=== PATIENT | female | born 1980 | race Caucasian/White ===

== ENCOUNTER 2020-06-15 08:37 | Outpatient (RCR) | payer BC, SELFPAY ==
[2020-06-13] MEDS: RHO(D) IMMUNE GLOBULIN 300 MCG SYRINGE IM (17:27)
== END 2020-09-11 23:59 | disposition home or self-care (01) ==
LOC: ANHLAB 08:37
PROVIDERS: Visit Provider Obstetrics & Gynecology
DX: Z29.13 Encounter for prophylactic Rho(D) immune globulin (principal); O36.0130 Maternal care for anti-D [Rh] antibodies, third trimester, not applicable or unspecified; O20.0 Threatened abortion; Z3A.00 Weeks of gestation of pregnancy not specified
CPT/HCPCS: 36415; 84702; 85461; 90384; 96372; J2790

== ENCOUNTER 2020-11-27 10:50 | Outpatient (RCR) | payer BC, SELFPAY ==
[2020-11-27 12:05] LABS: Hematocrit 32.9 % (37.0-47.0); Hemoglobin 11.5 g/dL (12.0-15.0)
[2020-11-27 12:37] LABS: Glucose 1 Hour PP 50gm Dose 104 mg/dL
[2020-11-27 13:19] LABS: HIV 1/2 Ab P24 Ag Result Negative (Negative)
[2020-11-28] MEDS: RHO(D) IMMUNE GLOBULIN 300 MCG SYRINGE IM (09:25)
[2020-11-28 13:09] LABS: Rapid Plasma Reagin Non-Reactive (NonReactive)
== END 2021-02-25 23:59 | disposition home or self-care (01) ==
LOC: ANHLAB 10:50
PROVIDERS: Visit Provider Obstetrics & Gynecology
DX: Z29.13 Encounter for prophylactic Rho(D) immune globulin (principal); Z11.4 Encounter for screening for human immunodeficiency virus [HIV]; O36.0130 Maternal care for anti-D [Rh] antibodies, third trimester, not applicable or unspecified; Z3A.00 Weeks of gestation of pregnancy not specified
CPT/HCPCS: 36415; 82947; 85014; 85018; 85461; 86592; 86703; 90384; 96372; G0432; J2790

== ENCOUNTER 2021-01-14 12:55 | Observation (INO) | payer BC, SELFPAY ==
[2021-01-14 13:00] VITALS: BMI 27.4
[2021-01-14 13:30] VITALS: BP 107/59; PULSE 76
[2021-01-14 13:45] VITALS: BP 104/63; PULSE 88
[2021-01-14 14:00] VITALS: BP 110/63; PULSE 80
[2021-01-14 14:15] VITALS: BP 106/65; PULSE 86
--- NOTE | 2021-01-14 14:54 | OBADM ---
This patient, Rosmery Meade, admitted to the OB room OB Post 116 for observation. Patient/family oriented to hospital policies and general routines including ID bracelet, bed and alarms, visiting hours, pain management, procedures, bathroom and other care routines, personal items, smoking policy, room service/diet, and visiting hours. Patient/Family are encouraged to report perceived risks to care and to ask questions if they do not understand what they are told or what they should do.
--- NOTE | 2021-02-10 19:46 | PM.OBTRLD ---
OB - Triage/Final Diagnosis Visit Information Comments/Additional reasons for admission: I have assessed the risk for this patient, Rosmery Meade, and determined that she would benefit from observation care. Final Diagnosis (1) False labor: Code(s): O47.9 - False labor, unspecified Status: Acute
== END 2021-01-14 14:35 | disposition home or self-care (01) ==
PROVIDERS: Admitting Provider Obstetrics & Gynecology; Visit Provider Obstetrics & Gynecology
DX: O47.03 False labor before 37 completed weeks of gestation, third trimester (principal); Z3A.35 35 weeks gestation of pregnancy
CPT/HCPCS: G0378; G0379

== ENCOUNTER 2021-01-23 16:32 | Inpatient (IN) | payer BC, SELFPAY ==
[2021-01-23] VITALS (70 sets, daily range): BP systolic 87–136; BP diastolic 49–88; PULSE 67–229; TEMP 36.6–37.5; O2SAT 94–100; BMI 27.7
--- NOTE | 2021-01-23 17:29 | WPDANESEPP ---
Anes - Eval Pre Procedure Procedure: labor epidural Date/Time: 01/23/21 17:29 Surgeon: yaz Pre Op Diagnosis: leaking Patient Data Age: 40 Gender: F Height: Weight: Allergies Allergy/AdvReac Type Severity Reaction Status Date / Time No Known Allergies Allergy Verified 11/28/20 09:22 Home Medications Medication Instructions Recorded Confirmed Type prenat.vits,gabriel,hxz-wdyn-kykgs 1 tablet PO DAILY 01/14/21 01/14/21 History Patient hx anesthesia problems: none Family hx anesthesia problems: none PMFSH Past Medical History Medical History Migraines Surgical History Surgical History (Updated 01/23/21 @ 17:30 by Chrissie Angel CRNA) S/P abdominoplasty Family History Family History Grandparent Family history of malignant neoplasm of breast Social History Social History Smoking status: Never smoker Alcohol intake: never Substance use: never Spiritual care concerns: No Exam Day of Procedure 01/23/21 17:29
[2021-01-23] MEDS: LACTATED RINGERS 1,000 ML 125 ML IV CONT ×2 (17:38→18:19)
[2021-01-23 17:41] LABS: Hematocrit 36.2 % (37.0-47.0); Hemoglobin 12.7 g/dL (12.0-15.0); Mean Corpuscular HGB Conc 35.1 g/dl (32-36); Mean Corpuscular Hemoglobin 32.5 pg (26-34); Mean Corpuscular Volume 92.6 fl (80-100); Mean Platelet Volume 9.9 fl (7.4-10.4); Platelet Count Result 316 k/mm3 (150-375); Red Blood Count 3.91 M/mm3 (4.2-5.4); Red Cell Distribution Width 13.1 % (11.5-14.5); White Blood Count 20.8 K/mm3 (4.5-10.0)
[2021-01-23 18:06] LABS: Lymphocytes Absolute Manual 3.12 K/mm3 (1.1-4.5); Monocytes Absolute Manual 1.04 K/mm3 (0.1-0.90); Monocytes Percent Manual 5 % (3-9); Neutrophils Percent Manual 80 % (46-73); Platelet Estimate Adequate (Adequate); Total Cells Counted 100
--- NOTE | 2021-01-23 18:19 | WPDOBADMIT ---
Obstetrics - Admit Note Admission Note: record reviewed. No pertinent additions to the history and/or any subsequent changes in the physical findings that are not consistent with the expected course of the were found. Pt arrived after SROM at home, clear fluid, forebag SVE /-2, AROM moderate amount of clear odorless fluid Additions to the history and/or subsequent changes in the physical findings follow. None.
--- NOTE | 2021-01-23 18:42 | LDADM ---
This patient, Rosmery Meade, was admitted to Labor/Delivery/Recovery 107 on 01/23/21 at 16:32. Plans for labor, pain management and were discussed with patient. Patient/family oriented to hospital policies and general routines including ID bracelet, bed and alarms, visiting hours, pain management, procedures, bathroom and other care routines, personal items, smoking policy, room service/diet and guest tray routines, infant security routines, and visiting hours. Patient/Family are encouraged to report perceived risks to care and to ask questions if they do not understand what they are told or what they should do. See OBIX for further documentation.
[2021-01-23] MEDS: OXYTOCIN 30 UNITS/NS 500 ML 30 UNITS/500 ML BAG 999 UNITS IV CONT (21:46)
--- NOTE | 2021-01-23 21:59 | P.PCNOB_ITS ---
OB - Delivery Note Procedure Delivery date: 01/23/21 Procedure: vaginal delivery Intrapartal events: None Delivery augmentation: rupture of membranes Delivery monitor: external FHT and external uterine Route of delivery: Laceration Description: Perineal - 1st Degree Delivery repair: vicryl Specimen: No Quantitative Blood Loss (ml): 217 Anesthesia type: Epidural Disposition: other () [place] Baby Date of : 01/23/21 Time of : 21:44 Weeks of gestation at delivery: 37 gender: Female Weight (pounds): 6 Weight (ounces): 5 presentation: vertex position: Left Occiput Anterior Placenta delivery description: Spontaneous cord vessel description: 3 Vessels, Clamped/Cut and Delayed Cord Clamping score one minute: 8 score five minutes: 9 Narrative: mother and baby skin to skin in stable condition
[2021-01-23] MEDS: OXYTOCIN 30 UNITS/NS 500 ML 30 UNITS/500 ML BAG 125 UNITS IV CONT (22:26)
[2021-01-23] MEDS: IBUPROFEN 600 MG TABLET PO (22:27)
[2021-01-24] VITALS (7 sets, daily range): BP systolic 90–106; BP diastolic 54–62; PULSE 66–75; RESP 14–17; TEMP 36.1–37.2; O2SAT 95–98
[2021-01-24] MEDS: ACETAMINOPHEN 325 MG TABLET 650 MG PO ×3 (01:20→15:43)
[2021-01-24] MEDS: IBUPROFEN 600 MG TABLET PO ×4 (03:42→23:53)
[2021-01-24 05:41] LABS: Hematocrit 33.4 % (37.0-47.0); Hemoglobin 11.3 g/dL (12.0-15.0)
--- NOTE | 2021-01-24 07:30 | PC.NURSE ---
Consult with pt., mother report infant is latching, sleepy and on and off during feeding. Mother reports last child to breastfeed is 16 years old. Discussed and the 37 week , establishing may have its own unique set of circumstances due to their immaturity. infants may be less alert, have less stamina and may have issues with latch, suck and swallow. With the possible inability to have a vigorous suck swallow, infants may not be adequately stimulating mother and/or able to have adequate milk transfer. Pumping should be considered for additional stimulation and to offer EBM as part of supplement as needed if infant is not effectively feeding. Reviewed infant feeding cues, frequencies, duration of feedings, feeding elimination flow sheet, and signs of adequate intake. Demonstrated stimulation techniques to wake infant for feeding. Assisted with infant to breast. Reviewed positioning/alignment in cross cradle, holding breast in U hold and guided asymmetrical latch on. Infant was able to latch correctly within a few attempts. nursed eagerly, with steady draws and occasional swallowing noted. Reviewed signs of a correct latch, effective nursing and suck swallow ratio. Mother reported tenderness at times, had slipped to shallow latch. Demonstrated how to adjust latch more deeply while feeding. Mother quickly reports she can feel is latched more deeply and has minimal tenderness. Suggested to stimulate infant while feeding to keep infant awake and nursing effectively for increased stimulation. increased intake and to assist with maintaining deep latch. Instructed mother to call out for RN assistance if she is unable to latch for feeding or she has discomfort with nursing Nipple care reviewed.
--- NOTE | 2021-01-24 07:49 | PM.OBPNVD ---
OB - PN: Subj Subjective Date/time seen: 01/24/21 07:49 Patient comments: no complaints baby status: doing well OB - PN: Obj Data Labs CBC & Chem 7: 01/24/21 03:45 Labs: Laboratory Results - last 24 hr 01/23/21 01/23/21 01/24/21 17:32 17:32 03:45 WBC 20.8 H RBC 3.91 L Hgb 12.7 11.3 L Hct 36.2 L 33.4 L MCV 92.6 MCH 32.5 MCHC 35.1 RDW 13.1 Plt Count 316 MPV 9.9 Immature Gran % (Auto) Not Reportable Neut % (Auto) Not Reportable Lymph % (Auto) Not Reportable Baca % (Auto) Not Reportable Eos % (Auto) Not Reportable Baso % (Auto) Not Reportable Lymph # (Auto) Not Reportable [place]aca # (Auto) Not Reportable Eos # (Auto) Not Reportable Baso # (Auto) Not Reportable Abs Immat Gran (auto) Not Reportable Absolute Neuts (auto) Not Reportable Absolute Nucleated RBC Not Reportable Total Counted 100 Neutrophils % (Manual) 80 H Lymphocytes % (Manual) 15.0 L Monocytes % (Manual) 5 Nucleated RBC % Not Reportable Abs Lymphs (Manual) 3.12 Abs Monocytes (Manual) 1.04 H Platelet Estimate Adequate Blood Type B Negative Antibody Screen Positive Antibody Identification Passive Due to RH Imm Glob Antigen Identification Cancelled KURT, IgG Interpret Not Performed KURT, Poly Interpret Negative KURT, Complement Interp Not Performed Screen Baby's Blood Type Baby's KURT Doses of RhIg Required 01/24/21 03:45 WBC RBC Hgb Hct MCV MCH MCHC RDW Plt Count MPV Immature Gran % (Auto) Neut % (Auto) Lymph % (Auto) Baca % (Auto) Eos % (Auto) Baso % (Auto) Lymph # (Auto) Baca # (Auto) Eos # (Auto) Baso # (Auto) Abs Immat Gran (auto) Absolute Neuts (auto) Absolute Nucleated RBC Total Counted Neutrophils % (Manual) Lymphocytes % (Manual) Monocytes % (Manual) Nucleated RBC % Abs Lymphs (Manual) Abs Monocytes (Manual) Platelet Estimate Blood Type B Negative Antibody Screen TNP Antibody Identification Antigen Identification KURT, IgG Interpret KURT, Poly Interpret KURT, Complement Interp Screen Negative Baby's Blood Type O pos Baby's KURT Positive Doses of RhIg Required 1 OB - PN A/P Plan day: 1 Plan: routine care Time Spent With Patient Time: Total time spent is greater than 50% in coordination of care (as documented) at patient's floor/unit and/or counseling patient: Time with patient: less than 15 minutes Review of Systems Review of Systems: All systems reviewed & are unremarkable except as noted in HPI and below Exam Narrative: Exam Narrative: Fundus firm and vaginal flow controlled. No lower ext redness, warmth, or edema. Negative homans. Const: General: comfortable Chest: Breast/axilla inspection: normal inspection of the breasts Resp: Effort & Inspection: normal respiratory effort Cardio: Rate: regular rate GI: GI Palp: Yes Soft to palpation Psych: Appearance: grossly normal Affect: normal affect Attitude: cooperative Thought content: Yes Normal thought content present Judgement: Good judgement present (Psych)
[2021-01-24] MEDS: DOCUSATE SODIUM 100 MG CAPSULE PO ×2 (07:51→17:35)
[2021-01-24] MEDS: MULTIVIT/MIN/PREN/FOL AC/IRON TABLET 1 TAB PO (07:52)
--- NOTE | 2021-01-24 10:37 | WPDANLDPN2 ---
Anes-Prog Note L&D Date/Time: 01/24/21 10:37 Comfortable throughout: labor and delivery Neuraxial method: epidural Epidural/Spinal procedure site: clean & non-tender Neuro status: Neuro function grossly intact. Cardiovascular status: normal Respiratory status: normal Airway patency: baseline Mental status: baseline Post-Op hydration status: normal Vital Signs: Last Vital Signs Temp 37.2 C 01/24/21 07:20 Pulse 66 01/24/21 07:20 Resp 16 01/24/21 07:20 BP 98/54 L 01/24/21 07:20 Pulse Ox 95 01/24/21 07:20 Pain score (VAS): 0/10 I/O: Intake & Output 01/23/21 01/24/21 01/24/21 23:59 07:59 15:59 Intake Total 1500 Output Total 50 Balance 1500 -50 Post-procedural complaints: none Patient feedback: Patient satisfied with anesthetic care.
[2021-01-24] MEDS: TETANUS,DIPHTHERIA,AC PERTUSSIS ADULT (0.5 ML) BOOSTRIX IM (12:19)
[2021-01-24] MEDS: RHO(D) IMMUNE GLOBULIN 300 MCG/2 ML SYRINGE IM (12:22)
[2021-01-24 13:04] LABS: Rapid Plasma Reagin Non-Reactive (NonReactive)
--- NOTE | 2021-01-24 14:10 | PC.NURSE ---
Consult with pt., she was able to independently latch latch for two feedings. Mother states she does not feel infant was latched as deeply and was on and off during feedings. Assisted with infant to breast. Reviewed positioning/alignment in cross cradle, holding breast in U hold and guided asymmetrical latch on. Infant was able to latch correctly within a few attempts. nursed eagerly, with steady draws and occasional swallowing noted. Reviewed signs of a correct latch, effective nursing and suck swallow ratio. Mother reported tenderness at times, had slipped to shallow latch., mother independently worked to adjust latch. Mother reports she can feel infant is latched more deeply and has minimal tenderness. Suggested to stimulate infant while feeding to keep infant awake and nursing effectively for increased stimulation. increased intake and to assist with maintaining deep latch. Instructed mother to call out for RN assistance if she is unable to latch infant for feeding or she has discomfort with nursing Nipple care reviewed.
--- NOTE | 2021-01-25 05:49 | P.PNOB_ITS ---
OB - PN: Subj Subjective Date/time seen: 01/25/21 05:49 Patient comments: no complaints baby status: doing well OB - PN: Obj Data Labs CBC & Chem 7: 01/24/21 03:45 Labs: Laboratory Results - last 24 hr 01/23/21 01/24/21 17:32 03:45 RPR Non-reactive Blood Type B Negative Antibody Screen TNP Screen Negative Baby's Blood Type O pos Baby's KURT Positive Doses of RhIg Required 1 OB - PN A/P Plan day: 2 Plan: routine care and discharge home Time Spent With Patient Time: Total time spent is greater than 50% in coordination of care (as documented) at patient's floor/unit and/or counseling patient: Review of Systems Review of Systems: All systems reviewed & are unremarkable except as noted in HPI and below Exam Const: General: cooperative Orientation/consciousness: patient oriented x3 Psych: Attitude: cooperative Thought process: Normal thought process prese nt Thought content: Yes Normal thought content present Insight: Good insight present (Psych) Judgement: Good judgement present (Psych)
--- NOTE | 2021-01-25 05:51 | PM.OBDSVD ---
DS: Admitting Diagnosis Admitting Diagnosis Admitting Diagnosis: SROM OB - DS: Summary OB Procedures : None OB Procedures Intrapartum: Spontaneous Vag Delivery OB Procedures: : None Time Spent with Patient Time attestation: Total time spent providing and/or coordinating discharge services: DS: Data Data Completed and Pending Labs on day of discharge: Labs from last 24 hours 01/24/21 01/23/21 03:45 17:32 RPR Non-reactive Blood Type B Negative Antibody Screen TNP Screen Negative Baby's Blood Type O pos Baby's KURT Positive Doses of RhIg Required 1 Discharge Plan Discharge Attending physician on discharge: Helen Jackman Discharging Clinician: Balbina Prado Patient Disposition: Home, Self-Care Activity: pelvic rest Diet: regular Patient Instructions: Antibiotic Form, How to Stop Smoking (GEN), Cigarette Smoking and Your Health (GEN) Stand Alone Forms: General Discharge Information Follow-up/Referrals: Balbina Prado, CNM [Certified Nurse Perioperative Nurse] - 4 Weeks Discharge Medications: Continued prenat.vits,gabriel,zns-cxfl-tctcz Tablet 1 tablet PO DAILY RF: 0 Discontinued zolpidem [Ambien] 5 mg Tablet 5 mg PO HS PRN (Reason: Sleep) RF: 0 Date of admission: 01/23/21 16:32 Primary Care Provider: PHYSICIAN,PACKING AND FINAL ASSEMBLY SUPERVISOR Admitting Provider: Helen Jackman Attending physician on admission: Helen Jackman Condition: Stable
[2021-01-25 08:00] VITALS: PULSE 80; RESP 16; O2SAT 99
[2021-01-25 09:00] VITALS: BP 112/67; PULSE 80; RESP 16; TEMP 37.1; O2SAT 99
[2021-01-25] MEDS: DOCUSATE SODIUM 100 MG CAPSULE PO (09:36)
[2021-01-25] MEDS: IBUPROFEN 600 MG TABLET PO (09:36)
[2021-01-25] MEDS: MULTIVIT/MIN/PREN/FOL AC/IRON TABLET 1 TAB PO (09:36)
--- NOTE | 2021-01-25 12:17 | PC.NURSE ---
1030-Patient viewed the discharge video Mother & Baby Care, The First Two Weeks . Patient was given the opportunity and encouraged to ask questions. Patient verbalized understanding of information shared and has been given the mother/baby guide for home reference.
--- NOTE | 2021-01-25 14:35 | PC.NURSE ---
0930 Consult with pt., mother reports was sleepy during the night and was on and off several times during feedings. Mother states ICP has suggested receive 10-15mls supplement after each feeding. Mother feels when she has assist with latching infant latches with a deep latch and is able to maintain latch. Discussed assisting infant with latch in cross cradle and holding breast during entire feeding to assist infant with deep latch and maintaining latch, helping with increased stimulation and increased intake for . Suggested mother initiate pumping to assist with stimulation of milk supply and may offer EBM as part of supplement. Assisted with to breast. Reviewed positioning/alignment in cross cradle, holding breast in U hold and guided asymmetrical latch on. was able to latch correctly. Infant nursed eagerly, with steady draws and occasional swallowing noted. Reviewed signs of a correct latch, effective nursing and suck swallow ratio. Mother switched to cradle, slipped to shallow latch and was on and off during feeding. Advised is eagerly and needs the assistance of mother holding breast and keeping her aligned correctly for feeding. Once mother returns to U hold infant was able to suckle more consistently, needing long pausing. Suggested mother stimulate while feeding to keep awake and nursing effectively. Infant responded with increased nursing with mother's stimulation. Infant was able to maintain latch without discomfort to mother. Nipple care reviewed. Assisted parents with paced feeding after , infant is slow to nipple 10mls with formula running from her mouth. Reviewed to hold upright and chin support. Discussed signs may need to increase supplementation and signs when infant may be ready to decreased/discontinue supplementation. Advised not to discontinue supplement until feeding is observed by follow up RN, or BRIAN. Advised to discuss feeding plan with ICP at first appointment. Observed mother is able to independently latch with appropriate positioning/alignment. She denies any nipple discomfort, is feeding as required and waking infant to feed if needed. has had at least 8 feedings in the past 24 hours, and is currently meeting outcomes for weight, output, jaundice and feeding frequencies. Mother states she feels confident to continue feeding plan of putting to breast, supplementation and pumping at home. Reviewed transition to breast milk, signs of adequate intake, and engorgement/relief. Instructed to call ICP if intake/output less than required. Reviewed regular medications mother is taking. Information provided per Estrellita. Reviewed community resources on the [facility] website and in the Mom/Baby guide. Information on outpatient services provided. Mother has no further questions at this time.
[2021-01-26 08:52] VITALS: BP 113/64; PULSE 68; RESP 16; TEMP 36.8; O2SAT 100
== END 2021-01-25 11:40 | disposition home or self-care (01) | DRG 807 ==
LOC: ANHLDR 16:59 → ANHOB2 01-24 00:41
PROVIDERS: Advanced Practice Midwife; Admitting Provider Obstetrics & Gynecology; Visit Provider Obstetrics & Gynecology
DX: O42.92 Full-term premature rupture of membranes, unspecified as to length of time between rupture and onset of labor (principal); Z37.0 Single live birth; Z3A.37 37 weeks gestation of pregnancy; O70.0 First degree perineal laceration during delivery
CPT/HCPCS: 36415; 85014; 85018; 85025; 85461; 86592; 86850; 86880; 86900; 86901; 90384; 90715; A9270; J2590; J2790; J2795; J7120

== ENCOUNTER 2022-02-17 16:57 | Outpatient (RCR) | payer BC, SELFPAY ==
[2022-02-18] MEDS: RHO(D) IMMUNE GLOBULIN 300 MCG/2 ML SYRINGE IM (17:33)
== END 2022-05-14 23:59 | disposition home or self-care (01) ==
LOC: ANHLAB 16:57
PROVIDERS: Visit Provider Obstetrics & Gynecology
DX: O26.859 Spotting complicating pregnancy, unspecified trimester (principal); Z3A.00 Weeks of gestation of pregnancy not specified
CPT/HCPCS: 36415; 85461; 86850; 86900; 86901; 90384; 96372; J2790

== ENCOUNTER 2022-05-23 09:08 | Outpatient (RCR) | payer BC, SELFPAY ==
[2022-05-22 17:47] LABS: Hematocrit 33.9 % (37.0-47.0); Hemoglobin 11.5 g/dL (12.0-15.0)
[2022-05-22 18:36] LABS: HIV 1/2 Ab P24 Ag Result Negative (Negative)
== END 2022-05-23 10:00 | disposition home or self-care (01) ==
LOC: ANHLAB 09:08
PROVIDERS: Visit Provider Advanced Practice Midwife
DX: O36.0130 Maternal care for anti-D [Rh] antibodies, third trimester, not applicable or unspecified (principal); Z36.89 Encounter for other specified antenatal screening; Z3A.00 Weeks of gestation of pregnancy not specified
CPT/HCPCS: 36415; 85014; 85018; 85461; 86703; 86880; 86902; 90384; G0432; J2790

== ENCOUNTER 2022-05-23 16:31 | Outpatient (CLI) | payer BC, SELFPAY ==
[2022-05-23] MEDS: RHO(D) IMMUNE GLOBULIN 300 MCG/2 ML SYRINGE IM (17:09)
[2022-05-23 18:01] LABS: Glucose 1 Hour PP 50gm Dose 136 mg/dL
== END 2022-05-23 16:32 | disposition home or self-care (01) ==
LOC: ANHLAB 16:34
PROVIDERS: Visit Provider Advanced Practice Midwife
DX: Z36.89 Encounter for other specified antenatal screening (principal)
CPT/HCPCS: 36415; 82947; 96372

== ENCOUNTER 2022-07-09 14:06 | Outpatient (RCR) | payer BC, SELFPAY ==
[2022-07-09] MEDS: BETAMETHASONE SOD PHOS/ACETATE 30 MG/5 ML VIAL 12 MG IM (14:26)
== END 2022-07-10 14:41 | disposition home or self-care (01) ==
LOC: ANHOBOP 14:06
PROVIDERS: Visit Provider Obstetrics & Gynecology
DX: O36.8990 Maternal care for other specified fetal problems, unspecified trimester, not applicable or unspecified (principal); Z3A.00 Weeks of gestation of pregnancy not specified
CPT/HCPCS: 96372; J0702

== ENCOUNTER 2022-07-10 13:49 | Outpatient (CLI) | payer BC, SELFPAY ==
[2022-07-10] MEDS: BETAMETHASONE SOD PHOS/ACETATE 30 MG/5 ML VIAL 12 MG IM (14:06)
[2022-07-10 14:35] VITALS: BP 99/55; PULSE 87
--- NOTE | 2022-07-10 15:11 | PC.NURSE ---
Dr. Jackman notified of patient's NST, ROM plus is negative, and celestone injection given.
== END 2022-07-10 13:50 | disposition home or self-care (01) ==
LOC: ANHOBOP 13:54
PROVIDERS: Visit Provider Obstetrics & Gynecology
DX: O26.859 Spotting complicating pregnancy, unspecified trimester (principal); Z3A.00 Weeks of gestation of pregnancy not specified
CPT/HCPCS: 59025; 84112; 96372; J0702

== ENCOUNTER 2022-07-11 08:54 | Observation (INO) | payer BC, SELFPAY ==
[2022-07-11] VITALS (39 sets, daily range): BP systolic 89–102; BP diastolic 53–63; PULSE 63–92; RESP 16; TEMP 37.4–37.7; O2SAT 95–100; BMI 25.2
--- NOTE | 2022-07-11 10:02 | OBADM ---
This patient, Rosmery Meade, admitted to the OB room Labor/Delivery/Recovery 118 for decreased movement and changed to observation due to contractions. Patient/family oriented to hospital policies and general routines including ID bracelet, bed and alarms, visiting hours, pain management, procedures, bathroom and other care routines, personal items, smoking policy, room service/diet, and visiting hours. Patient/Family are encouraged to report perceived risks to care and to ask questions if they do not understand what they are told or what they should do.
[2022-07-11] MEDS: NIFEdipine 30 MG TAB.ER.24 PO (10:03)
[2022-07-11 11:30] LABS: Appearance Urine Slightly Cloudy (Clear); Bilirubin Urine Negative (Negative); Blood Urine Negative (Negative); Color Urine Light Yellow (Yellow); Glucose Urine UA Negative (Negative); Ketones Urine 1+ mg/dL (Negative); Leukocyte Esterase Ur Negative LEU/UL (Negative); Nitrate Urine Negative (Negative); Protein Urine Negative (Negative); Specific Grav Ur 1.015 (1.001-1.035); Urobilinogen Urine 0.2 mg/dL (<2.0)
[2022-07-11 11:37] LABS: Add Urine Microscopic? YES; Amorphous Sediment Urine Few; Squamous Epithelial Cell Urine Rare /hpf (Few)
--- NOTE | 2022-07-15 19:48 | P.PNOB_ITS ---
OB - Triage/Final Diagnosis Visit Information Date of evaluation: 07/11/22 Reason for evaluation: threatened labor Comments/Additional reasons for admission: I have assessed the risk for this patient, Rosmery Meade, and determined that she would benefit from observation care. Evaluation Laboratory results: Laboratory Tests 07/11/22 11:14 Urine Color Light yellow Urine Appearance Slightly cloudy Urine pH 7.0 Ur Specific Richardson 1.015 Urine Protein Negative Urine Glucose (UA) Negative Urine Ketones 1+ H Ur Blood (Man) Negative Urine Nitrate Negative Urine Bilirubin Negative Urine Urobilinogen 0.2 Leukocyte Esterase Rfl Negative Ur Squamous Epith Cells Rare Amorphous Sediment Few H
== END 2022-07-11 13:05 | disposition home or self-care (01) ==
PROVIDERS: Advanced Practice Midwife; Admitting Provider Obstetrics & Gynecology; Visit Provider Obstetrics & Gynecology
DX: O47.03 False labor before 37 completed weeks of gestation, third trimester (principal); Z3A.34 34 weeks gestation of pregnancy
CPT/HCPCS: 81001; A9270; G0378; G0379

== ENCOUNTER 2022-07-23 12:00 | Observation (INO) | payer BC, SELFPAY ==
[2022-07-23 12:19] VITALS: BP 113/64; PULSE 73
[2022-07-23 13:00] VITALS: BP 109/71; PULSE 88
--- NOTE | 2022-07-25 07:37 | PM.OBTRLD ---
OB - Triage/Final Diagnosis Visit Information Date of evaluation: 07/23/22 Reason for evaluation: threatened labor Comments/Additional reasons for admission: I have assessed the risk for this patient, Rosmery Meade, and determined that she would benefit from observation care.
== END 2022-07-23 13:55 | disposition home or self-care (01) ==
PROVIDERS: Admitting Provider Obstetrics & Gynecology; Visit Provider Obstetrics & Gynecology
DX: O47.03 False labor before 37 completed weeks of gestation, third trimester (principal); Z3A.36 36 weeks gestation of pregnancy
CPT/HCPCS: 84112; G0378; G0379

== ENCOUNTER 2022-07-25 18:17 | Observation (INO) | payer BC, SELFPAY ==
[2022-07-25 20:30] VITALS: BMI 25.4
[2022-07-26 04:22] VITALS: BP 104/42; PULSE 83
--- NOTE | 2022-07-26 06:04 | OBADM ---
This patient, Rosmery Meade, admitted to the OB room Labor/Delivery/Recovery 105 for observation. Patient/family oriented to hospital policies and general routines including ID bracelet, bed and alarms, visiting hours, pain management, procedures, bathroom and other care routines, personal items, smoking policy, room service/diet, and visiting hours. Patient/Family are encouraged to report perceived risks to care and to ask questions if they do not understand what they are told or what they should do.
== END 2022-07-26 07:28 | disposition home or self-care (01) ==
PROVIDERS: Admitting Provider Obstetrics & Gynecology; Visit Provider Obstetrics & Gynecology
DX: O47.03 False labor before 37 completed weeks of gestation, third trimester (principal); Z3A.36 36 weeks gestation of pregnancy
CPT/HCPCS: G0378; G0379

== ENCOUNTER 2022-07-30 11:35 | Inpatient (IN) | payer BC, SELFPAY ==
[2022-07-30] VITALS (92 sets, daily range): BP systolic 65–129; BP diastolic 39–93; PULSE 64–110; RESP 18; TEMP 36.4–37.1; O2SAT 92–100; BMI 25.4
--- OUTSIDE RECORDS SUMMARY | 2022-07-30 13:07 | XMS_ITS ---
:1980 Author Care Team Providers Name Role Phone Balbina Prado [place] Primary Care Provider Unavailable Allergies Code Code System Name Reaction Severity Status Onset NKDA ? Medications Name Status Start Date Stop Date ? ? zndbpmnkry-zirqkiglzoedv-ypqcvrvz 50 mg-300 mg-40 mg capsule Com pleted ? 02/27/2021 TAKE 1 CAPSULE BY MOUTH EVERY 4 TO 6 HO URS NEEDED FOR HEADACHE. NOT TO EXCEED 6 CAPSULES IN 24 HOURS. Chantix Starting Month Box 0.5 mg (11)-1 mg (42) tablets Complet ed ? 07/04/2020 in dose pack cyclobenzaprine 10 mg tablet Completed ? TAKE 1 TABLET BY MOUTH AT BEDTIME NEEDED FOR TENSION HEADACH E disulfiram 250 mg tablet Completed ? 020 Fish Oil Completed ? 02/27/2021 magnesium Completed ? 11/29/2020 metoclopramide 10 mg tablet Completed ? 01/03 TAKE 1 TABLET BY MOUTH THREE TIMES DAILY metronidazole 500 mg tablet Completed ? 10/2021 TAKE 1 TABLET BY MOUTH TWICE DAILY FOR 7 DAYS nifedipine ER 30 mg tablet,extended release 24 hr Active ? Not available nitrofurantoin monohydrate/macrocrystals 100 mg capsule Complete d ? 01/15/2022 TAKE 1 CAPSULE BY MOUTH EVERY 12 HOURS FOR 7 DAYS ondansetron 4 mg disintegrating tablet Completed ? 05/25/2020 Active ? Not available Super Thin Lancets 28 gauge Active ? Not available TEST FOUR TIMES DAILY True Metrix Glucose Meter Active ? Not av ailable USE DIRECTED True Metrix Glucose Test Strip Active ? N ot available zolpidem 5 mg tablet Completed ? 02/27/2021 TAKE 1 TABLET BY MOUTH AT BEDTIME FOR INSOMNIA
--- OUTSIDE RECORDS SUMMARY | 2022-07-30 13:08 | XMS_ITS | Encounter Summary ---
:1980 Author Reason for Visit OB visit OB [id number] EDC 08/17/2022 LMP 10/13/2021 Assessment and Plan Assessment Note Patient is _28__weeks . Discuss ed plan. 1. Routine care Discussion Note: None recorded.Patient educational handouts: No information available. Plan of Care Reminders Provider Appointments Nst 08/06/2022 10:30AM Nst, , EQUI P ? U/S OB BPP 08/06/2022 11:00AM Ultrasound, TECH ? Ob Routine 08/06/2022 11:30AM Balbina gray CNM ? Nst 08/13/2022 10:30AM Nst, , EQUI P ? Ob Routine 08/13/2022 11:30AM Nehal Friend MD ? U/S OB BPP 08/13/2022 11:00AM Ultrasound Two, TECH Lab None recorded. ? ? Referral None recorded. ? ? Procedures None recorded. ? ? Surgeries None recorded. ? ? Imaging None recorded. ? ? Medications Name Start Date ? ? nifedipine ER 30 mg tablet,extended release 24 hr ? TAKE 1 TABLET BY MOUTH EVERY DAY ? Super Thin Lancets 28 gauge ? TEST FOUR TIMES DAILY True Metrix Glucose Meter ? USE DIRECTED True Metrix Glucose Test Strip ? Medications Administered None recorded. Vitals Height Weight BMI Blood Pressure 5 ft 127 lbs 24.8 kg/m2 98/65 mm[Hg] Results Lab Results None recorded. Allergies Code Code System Name Reaction Severity Onset NKDA ? ? ? Problems Name Status Onset Date Source ? Active 02/03/2022 ? Procedures
--- OUTSIDE RECORDS SUMMARY | 2022-07-30 13:08 | XMS_ITS | Encounter Summary ---
:1980 Author Reason for Visit OB visit OB [id number] EDC 08/17/2022 LMP 10/13/2021 Assessment and Plan 1. Routine care Discussion Note: None recorded.Patient [...] Height Weight BMI Blood Pressure 5 ft 124 lbs 24.2 kg/m2 93/57 mm[Hg] Results Lab Results None recorded. Allergies Code Code System Name Reaction Severity Onset NKDA ? ? ? Problems Name Status Onset Date Source ? Active 02/03/2022 ? Procedures Date Name Performed by ? 10/05/2009 Abdominoplasty Information not ammy reyes
--- OUTSIDE RECORDS SUMMARY | 2022-07-30 13:08 | XMS_ITS | Encounter Summary ---
:1980 Author Reason for Visit None recorded. Assessment and Plan 1. Reduced movement ? non-stress test Discussion Note: None recorded.Patient educational handouts: No [...] ? Surgeries None recorded. ? ? Imaging Non-stress Test 07/16/2022 [facility] Medications Name Start Date ? ? nifedipine ER 30 mg tablet,extended release 24 hr ? TAKE 1 TABLET BY MOUTH EVERY DAY ? Super Thin Lancets 28 gauge ? TEST FOUR TIMES DAILY True Metrix Glucose Meter ? USE DIRECTED True Metrix Glucose Test Strip ? Medications Administered None recorded. Vitals None recorded. Results Lab Results None recorded. Allergies Code Code System Name Reaction Severity Onset NKDA ? ? ? Problems Name Status Onset Date Source ? Active 02/03/2022 ? Procedures Date Name Performed by ? 10/05/2009 Abdominoplasty Information not avai lable 10/05/2000 Extraction of [place] Tooth Information n ot available 06/25/2022 US, Obstetric, Follow-up Isa
--- OUTSIDE RECORDS SUMMARY | 2022-07-30 13:08 | XMS_ITS | Encounter Summary ---
:1980 Author Reason for Visit None recorded. Assessment and Plan 1. Multigravida of advanced maternal ag e ? US, obstetric, biophysical profile Discussion Note: None recorded.Patient educational handouts: No information available. Plan of Care Reminders Provider Appointments Nst 08/06/2022 Nst, , EQUIP 10:30AM ? U/S OB BPP 08/06/2022 Ultrasound, [facility]EN[facility] H 11:00AM ? Ob Routine 08/06/2022 Balbina Prado CNM 11:30AM ? Nst 08/13/2022 Nst, , EQUIP 10:30AM ? Ob Routine 08/13/2022 Nehal kemp MD 11:30AM ? U/S OB BPP 08/13/2022 Ultrasound Two, TECH 11:00AM Lab None recorded. ? ? Referral None recorded. ? ? Procedures None recorded. ? ? Surgeries None recorded. ? ? Imaging US, Obstetric, Biophysical 07/23/2022 Rachel vasquez Profile Medications Name Start Date ? ? nifedipine [...] Onset NKDA ? ? ? Problems Name S
--- OUTSIDE RECORDS SUMMARY | 2022-07-30 13:08 | XMS_ITS | Encounter Summary ---
:1980 Author Reason for Visit None recorded. Assessment and Plan 1. Advanced maternal age ? US, obstetric, follow-up ? US, obstetric, biophysical profile + non-stress test Discussion Note: None recorded.Patient educational [...] None recorded. ? ? Imaging US, Obstetric, Follow-up 07/30/2022 Chin lange ? US, Obstetric, Biophysical 07/30/2022 Rachel vasquez Profile + Non-stress Test Medications Name Start Date ? ? nifedipine ER 30 mg tablet,extended release 24 hr ? TAKE 1 TABLET BY MOUTH EVERY DAY ? Super Thin Lancets 28 gauge ? TEST FOUR TIMES DAILY True Metrix Glucose Meter ? USE DIRECTED True Metrix Glucose Test Strip ? Medications Administered None recorded. Vitals None recorded. Results Lab Results None recorded. Allergies Code Code Syst
--- OUTSIDE RECORDS SUMMARY | 2022-07-30 13:08 | XMS_ITS ---
:1980 Author Allergies Code Code System Name Reaction Severity Status Onset NKDA ? Medications Name Status Start Date Stop Date ? ? alprazolam 0.5 mg tablet Completed ? 019 TAKE 1 TABLET BY MOUTH THREE TIMES DAILY NEEDED FOR ANXIETY bupropion HCl SR 150 mg tablet,12 hr sustained-release Completed ? 04/05/2019 TAKE 1 TABLET BY MOUTH TWICE DAILY buspirone 10 mg tablet Completed ? 9 Take 0.5 tablets twice a day by oral route. buspirone 5 mg tablet Completed ? 04/05/2019 Take 1 tablet twice a day by oral route. cannabidiol (CBD) oral oil Active ? Not a vailable Take by oral route. Celebrex 200 mg capsule Unknown ? Not avai lable Take 1 capsule twice a day by oral route. cyclobenzaprine 10 mg tablet Completed ? Take 1 tablet three times daily Lotrisone 1 %-0.05 % topical cream Unknown ? Not available Apply by topical route twice daily Macrobid 100 mg capsule Active ? Not avai lable Take 1 capsule twice a day by oral route for 7 days. Problems Name Status Onset Date Source ? Anxiety State Active ? ? Foot Pain Active ? Encounter Procedures Date Name Performed by ? ? Other Information not ammy reyes Notes: 2010-06 Bairon Butler 03/07/2014 X-ray, Foot Information not avai lable 04/05/2019 XR, Ankle [facility] ([facility] Sched[facility]) [address] [place], [place] [address]
--- OUTSIDE RECORDS SUMMARY | 2022-07-30 13:08 | XMS_ITS | Encounter Summary ---
:1980 Author Reason for Visit None recorded. Assessment and Plan 1. Advanced maternal age ? non-stress test Discussion Note: None recorded.Patient [...] None recorded. ? ? Imaging Non-stress Test 07/23/2022 Caroleen Medications Name Start Date ? ? nifedipine [...] Information not avai lable 10/05/2000 Extraction of [place] To[place] Information n ot available 06/25/2022 US, Obstetric, Follow-up
--- OUTSIDE RECORDS SUMMARY | 2022-07-30 13:08 | XMS_ITS | Encounter Summary ---
:1980 Author Reason for Visit OB visit OB [id number] EDC 08/17/2022 LMP 10/13/2021 Assessment and Plan Assessment Note Patient is _36__weeks . Discuss ed plan. 1. Routine care [...] Height Weight BMI Blood Pressure 5 ft 131 lbs 25.6 kg/m2 102/61 mm[Hg] Results Lab Results None recorded. Allergies Code Code System Name Reaction Severity Onset NKDA ? ? ? Problems Name Status Onset Date Source ? Active 02/03/2022 ? Procedures
--- OUTSIDE RECORDS SUMMARY | 2022-07-30 13:08 | XMS_ITS | Encounter Summary ---
:1980 Author Reason for Visit None recorded. Assessment and Plan 1. Uterine size for dates discrepancy ? US, obstetric, follow-up Discussion Note: None recorded.Patient educational handouts: No [...] recorded. ? ? Imaging US, Obstetric, Follow-up 06/25/2022 [place] Medications Name Start Date ? ? nifedipine [...]
[2022-07-30] MEDS: LACTATED RINGERS 1,000 ML 125 ML IV CONT ×3 (13:49→15:46)
[2022-07-30 13:51] LABS: Basophils Absolute Auto 0.1 K/mm3 (0.0-0.1); Basophils Percent Auto 0.6 % (0.2-1.2); Eosinophils Percent Auto 0.3 % (0-4.4); Hematocrit 38.2 % (37.0-47.0); Hemoglobin 12.8 g/dL (12.0-15.0); Immature Granulocyte Absolute 0.11 K/mm3 (0.00-0.031); Immature Granulocyte Percent A 0.8 % (0-0.5); Lymphocytes Absolute Auto 3.35 K/mm3 (0.9-3.2); Lymphocytes Percent Auto 24.4 % (18.3-44.2); Mean Corpuscular HGB Conc 33.5 g/dl (32-36); Mean Corpuscular Hemoglobin 32.2 pg (26-34); Mean Corpuscular Volume 96.2 fl (80-100); Mean Platelet Volume 9.9 fl (7.4-10.4); Monocytes Absolute Auto 0.6 K/mm3 (0.1-0.6); Monocytes Percent Auto 4.6 % (2.6-8.5); Neutrophils Absolute Auto 9.5 K/mm3 (1.3-6.7); Neutrophils Percent Auto 69.3 % (45.5-73.1); Platelet Count Result 289 k/mm3 (150-375); Red Blood Count 3.97 M/mm3 (4.2-5.4); Red Cell Distribution Width 13.6 % (11.5-14.5); White Blood Count 13.7 K/mm3 (4.5-10.0)
--- NOTE | 2022-07-30 13:54 | LDADM ---
This patient, Rosmery Meade, was admitted to Labor/Delivery/Recovery 106 on 07/30/22 at 11:35. Plans for labor, pain management and were discussed with patient. Patient/family oriented to hospital policies and general routines including ID bracelet, bed and alarms, visiting hours, pain management, procedures, bathroom and other care routines, personal items, smoking policy, room service/diet and guest tray routines, infant security routines, and visiting hours. Patient/Family are encouraged to report perceived risks to care and to ask questions if they do not understand what they are told or what they should do. See OBIX for further documentation.
--- NOTE | 2022-07-30 13:58 | WPDANESEPP ---
Anes - Eval Pre Procedure Procedure: Labor epidural Date/Time: 07/30/22 13:58 Surgeon: Augustina Preop Diagnosis: Abd pain with contractions Pre Op Diagnosis: augmentation of labor Patient Data Age: 42 Gender: F Height: Weight: Last Vital Signs Pulse 97 07/30/22 13:51 BP 105/66 07/30/22 13:51 Allergies Allergy/AdvReac Type Severity Reaction Status Date / Time No Known Allergies Allergy Verified 11/28/20 09:22 Home Medications Medication Instructions Recorded Confirmed Type prenat.vits,gabriel,ksb-hyga-qorby 1 tablet PO DAILY 01/14/21 07/11/22 History zolpidem 5 mg tablet 5 mg PO HS PRN Insomnia 07/26/22 Rx Laboratory Tests 07/30/22 07/30/22 07/30/22 13:24 13:24 13:24 WBC 13.7 K/mm3 H K/mm3 (4.5-10.0) RBC 3.97 M/mm3 L M/mm3 (4.2-5.4) Hgb 12.8 g/dL g/dL (12.0-15.0) Hct 38.2 % % (37.0-47.0) MCV 96.2 fl fl (80-100) MCH 32.2 pg pg (26-34) MCHC 33.5 g/dl g/dl (32-36) RDW 13.6 % % (11.5-14.5) Plt Count 289 k/mm3 k/mm3 (150-375) MPV 9.9 fl fl (7.4-10.4) Immature Gran % (Auto) 0.8 % H % (0-0.5) Neut % (Auto) 69.3 % % (45.5-73.1) Lymph % (Auto) 24.4 % % (18.3-44.2) [place] % (Auto) 4.6 % % (2.6-8.5) Eos % (Auto) 0.3 % % (0-4.4) Baso % (Auto) 0.6 % % (0.2-1.2) Lymph # (Auto) 3.35 K/mm3 H K/mm3 (0.9-3.2) [place] # (Auto) 0.6 K/mm3 K/mm3 (0.1-0.6) Eos # (Auto) 0.0 K/mm3 K/mm3 (0-0.3) Baso # (Auto) 0.1 K/mm3 K/mm3 (0.0-0.1) Abs Immat Gran (auto) 0.11 K/mm3 H K/mm3 (0.00-0.031) Absolute Neuts (auto) 9.5 K/mm3 H K/mm3 (1.3-6.7) Absolute Nucleated RBC 0.0 K/mm3 K/mm3 (0.0-0.012) Nucleated RBC % 0.0 % % (0.0-0.2) Hemoglobin A1c Pending RPR Pending Patient hx anesthesia problems: none Family hx anesthesia problems: none Results Review: All pre-operative results and documents have been reviewed as part of the pre-operative evaluation. [facility] Past Medical History Medical History Anxiety History of ETOH abuse IUP (intrauterine ), incidental Migraines Surgical History Surgical History S/P abdominoplasty Family History Family History Grandparent Family history of malignant neoplasm of breast Social History Social History Smoking packs per day: 0.5 Smoking cigarettes per day: 10.0 Smoking status: Current every day smoker Tobacco type: cigarettes Second hand tobacco smoke exposure: Yes Alcohol intake: never Substance use: never Spiritual care concerns: No Exam Day of Procedure 07/30/22 13:58 Patient weight: overweight Airway: Mallampati scale class II
[2022-07-30 15:05] LABS: Rapid Plasma Reagin Non-Reactive (NonReactive)
[2022-07-30] MEDS: PHENYLEPHRINE 1,000 MCG/10 ML SYRINGE 100 MCG IV PUSH ×3 (15:21→15:36)
[2022-07-30] MEDS: OXYTOCIN 30 UNITS/NS 500 ML 30 UNITS/500 ML BAG IV CONT (16:09)
--- NOTE | 2022-07-30 18:34 | P.PCNOB_ITS ---
OB - Delivery Note Procedure Delivery date: 07/30/22 Procedure: Induction method: None Delivery augmentation: Rupture of Membranes and Pitocin Delivery monitor: External Uterine and Internal FHT Route of delivery: Laceration Description: None Specimen: Yes Quantitative Blood Loss (ml): 175 Anesthesia type: Epidural Disposition: Floor Narrative: mom and baby stable and doing skin to skin [place] Baby Date of : 07/30/22 Time of : 18:19 Weeks of gestation at delivery: 37 Infant gender: Male Weight (pounds): 6 Weight (ounces): 11 presentation: compound (posterior arm) position: Left Occiput Anterior Placenta delivery description: Manual Removal score one minute: 8 score five minutes: 9
--- NOTE | 2022-07-30 18:39 | PM.OBPRVD ---
OB - Delivery Note Procedure Laceration Description: None Anesthesia type: Epidural Baby Date of : 07/30/22 Time of : 18:19 Weeks of gestation at delivery: 37 gender: Male Weight (pounds): 6 Weight (ounces): 11 presentation: compound (posterior arm) position: Left Occiput Anterior Placenta delivery description: Manual Removal Cord Vessel Description: 3 Vessels, Clamped/Cut, Delayed Cord Clamping and Around Extremity (right leg) score one minute: 8 score five minutes: 9
[2022-07-30] MEDS: ACETAMINOPHEN 325 MG TABLET 650 MG PO (18:57)
[2022-07-30 19:19] LABS: Hemoglobin A1C 5.2 % (<5.7)
[2022-07-30] MEDS: LORATADINE 10 MG TABLET PO (20:44)
--- NOTE | 2022-07-30 20:50 | PC.NURSE ---
Patient transferred to post room #285 via (W/C). Support person present. Oriented to unit, room, information board, rooming in, admission packet and security measures. Patient verbalizes understanding.
[2022-07-30] MEDS: IBUPROFEN 600 MG TABLET PO (23:28)
[2022-07-31] MEDS: CALCIUM CARBONATE (TUMS) 500 MG (200 MG ELEMENTAL) (02:23)
[2022-07-31] MEDS: ACETAMINOPHEN 325 MG TABLET 650 MG PO ×2 (04:49→12:36)
[2022-07-31 05:16] VITALS: BP 96/56; PULSE 70; RESP 18; TEMP 36.4; O2SAT 97
[2022-07-31 05:41] LABS: Hematocrit 29.7 % (37.0-47.0); Hemoglobin 10.2 g/dL (12.0-15.0)
[2022-07-31 07:55] VITALS: BP 95/59; PULSE 72; RESP 18; TEMP 36.8; O2SAT 98
--- NOTE | 2022-07-31 08:17 | PM.OBPNVD ---
OB - PN: Subj Subjective Date/time seen: 07/31/22 08:17 Patient comments: no complaints, pain well controlled, incisional pain, tolerating diet and flatus present OB - PN: Obj Data Labs CBC & Chem 7: 07/31/22 05:28 Labs: Laboratory Results - last 24 hr 07/30/22 07/30/22 07/30/22 13:24 13:24 13:24 WBC 13.7 H RBC 3.97 L Hgb 12.8 Hct 38.2 MCV 96.2 MCH 32.2 MCHC 33.5 RDW 13.6 Plt Count 289 MPV 9.9 Immature Gran % (Auto) 0.8 H Neut % (Auto) 69.3 Lymph % (Auto) 24.4 [place] % (Auto) 4.6 Eos % (Auto) 0.3 Baso % (Auto) 0.6 Lymph # (Auto) 3.35 H [place] # (Auto) 0.6 Eos # (Auto) 0.0 Baso # (Auto) 0.1 Abs Immat Gran (auto) 0.11 H Absolute Neuts (auto) 9.5 H Absolute Nucleated RBC 0.0 Nucleated RBC % 0.0 Hemoglobin A1c RPR Non-reactive Blood Type B Negative Antibody Screen Positive Antibody Identification Passive Due to RH Imm Glob Antigen Identification Cancelled KURT, IgG Interpret Not Performed KURT, Poly Interpret Negative KURT, Complement Interp Not Performed 07/30/22 07/31/22 13:24 05:28 WBC RBC Hgb 10.2 L Hct 29.7 L MCV MCH MCHC RDW Plt Count MPV Immature Gran % (Auto) Neut % (Auto) Lymph % (Auto) [place] % (Auto) Eos % (Auto) Baso % (Auto) Lymph # (Auto) [place] # (Auto) Eos # (Auto) Baso # (Auto) Abs Immat Gran (auto) Absolute Neuts (auto) Absolute Nucleated RBC Nucleated RBC % Hemoglobin A1c 5.2 RPR Blood Type Antibody Screen Antibody Identification Antigen Identification KURT, IgG Interpret KURT, Poly Interpret KURT, Complement Interp OB - PN A/P Plan day: 1 Plan: routine care Comments: No problems, routine care Time Spent With Patient Time: Total time spent is greater than 50% in coordination of care (as documented) at patient's floor/unit and/or counseling patient: Exam Const: General: comfortable, no acute distress and alert Resp: Effort & Inspection: normal respiratory effort Auscultation: no crackles, no rales and no rhonchi Cardio: Rate: regular rate Heart sounds: no click, no murmurs and no rubs GI: Inspection: non-distended GI Palp: No Tenderness to palpation present (GI) Auscultation: normal bowel sounds Other: Incision - CDI Extrem: General: normal to inspection, no pedal edema and no calf tenderness
--- NOTE | 2022-07-31 09:09 | WPDANLDPN2 ---
Anes-Prog Note L&D Date/Time: 07/31/22 09:09 Comfortable throughout: labor and delivery Neuraxial method: epidural Epidural/Spinal procedure site: clean & non-tender Neuro status: Neuro function grossly intact. Cardiovascular status: normal Respiratory status: normal Airway patency: baseline Mental status: baseline Post-Op hydration status: normal Vital Signs: Last Vital Signs Temp 36.8 C 07/31/22 07:55 Pulse 72 07/31/22 07:55 Resp 18 07/31/22 07:55 BP 95/59 L 07/31/22 07:55 Pulse Ox 98 07/31/22 07:55 O2 Del Method Room Air 07/30/22 13:52 Pain score (VAS): 3 I/O: Intake & Output 07/30/22 07/31/22 07/31/22 23:59 07:59 15:59 Output Total 125 Balance -125 Post-procedural complaints: none Patient feedback: Patient satisfied with anesthetic care.
[2022-07-31] MEDS: MULTIVIT/MIN/PREN/FOL AC/IRON TABLET 1 TAB PO (09:14)
[2022-07-31] MEDS: IBUPROFEN 600 MG TABLET PO ×2 (09:14→16:44)
[2022-07-31] MEDS: DOCUSATE SODIUM 100 MG CAPSULE PO ×2 (09:15→16:44)
[2022-07-31 12:13] VITALS: BP 96/53; PULSE 71; RESP 18; TEMP 36.8; O2SAT 95
--- NOTE | 2022-07-31 13:25 | PC.NURSE ---
[id number] [phone] Introductions were made, then consulted with patient to assess needs related to . Mother led the conversation with her?plans to feed?her infant and the?experience so far. Resources provided for inpatient and outpatient services using a resource guide and mom/baby guide. Mother voiced understanding of information and requests assistance. Attempts were made to latch infant. Infant is sleepy and reluctant and will not attempt with a big, open mouth. Infant was syringe fed 3mls of previously pumped human milk through a syringe while sucking on Father's gloved finger. Mother is pumping with her [place] pump and states there is no pain. Father of baby collected the pumped human milk into syringes and it was labeled and stored in the OB unit refrigerator in the nursery. Reported to the primary RN.
[2022-07-31 16:15] VITALS: BP 99/59; PULSE 75; RESP 16; TEMP 37.3; O2SAT 98
[2022-08-02 11:18] VITALS: BP 117/69; PULSE 59; RESP 20; TEMP 36.8; O2SAT 96
--- NOTE | 2022-08-24 11:00 | PM.OBTRLD ---
OB - Triage/Final Diagnosis Visit Information Comments/Additional reasons for admission: I have assessed the risk for this patient, Rosmery Meade, and determined that she would benefit from observation care. Evaluation Laboratory results: Laboratory Tests 07/30/22 07/30/22 07/30/22 13:24 13:24 13:24 WBC 13.7 H RBC 3.97 L Hgb 12.8 Hct 38.2 MCV 96.2 MCH 32.2 MCHC 33.5 RDW 13.6 Plt Count 289 MPV 9.9 Immature Gran % (Auto) 0.8 H Neut % (Auto) 69.3 Lymph % (Auto) 24.4 [place] % (Auto) 4.6 Eos % (Auto) 0.3 Baso % (Auto) 0.6 Lymph # (Auto) 3.35 H [place] # (Auto) 0.6 Eos # (Auto) 0.0 Baso # (Auto) 0.1 Abs Immat Gran (auto) 0.11 H Absolute Neuts (auto) 9.5 H Absolute Nucleated RBC 0.0 Nucleated RBC % 0.0 Hemoglobin A1c RPR Non-reactive Blood Type B Negative Antibody Screen Positive Antibody Identification Passive Due to RH Imm Glob Antigen Identification Cancelled KURT, IgG Interpret Not Performed KURT, Poly Interpret Negative KURT, Complement Interp Not Performed 07/30/22 07/31/22 13:24 05:28 WBC RBC Hgb 10.2 L Hct 29.7 L MCV MCH MCHC RDW Plt Count MPV Immature Gran % (Auto) Neut % (Auto) Lymph % (Auto) [place] % (Auto) Eos % (Auto) Baso % (Auto) Lymph # (Auto) [place] # (Auto) Eos # (Auto) Baso # (Auto) Abs Immat Gran (auto) Absolute Neuts (auto) Absolute Nucleated RBC Nucleated RBC % Hemoglobin A1c 5.2 RPR Blood Type Antibody Screen Antibody Identification Antigen Identification KURT, IgG Interpret KURT, Poly Interpret KURT, Complement Interp Final Diagnosis (1) False labor: Code(s): O47.9 - False labor, unspecified Status: Acute
--- NOTE | 2022-08-26 07:13 | PM.OBDSVD ---
DS: Admitting Diagnosis Discharge Date 07/31/22 Admitting Diagnosis IOL, non reassuring heart rate OB - DS: Summary OB Procedures : None OB Procedures Intrapartum: Spontaneous Vag Delivery OB Procedures: : None Time Spent with Patient Time attestation: Total time spent providing and/or coordinating discharge services: DS: Data Data Completed and Pending Completed studies during hospitalization: Pending at discharge 07/30/22 18:30 Surgical [PTH] Routine Discharge Plan Discharge Consulting providers: Balbina Prado ; Zohaib Treviño ; Bindu Ruffin Discharging Clinician: Helen Jackman Patient Disposition: Home, Self-Care Activity: as tolerated Diet: regular Discharge Instructions: Education: Mom and Baby Guide Given to: Mother Follow-Up: Call your delivering provider's office for an appointment to be seen in: 4 Weeks Mom and baby [facility] come [facility] for the follow-up appointment. Appointment Date/Time: August 02, 2022 at 11:00 am What to expect at your follow-up visit: Physical Assessment Call [phone] if you are unable to keep your appointment time. BREAST CARE: * Wear a snug supportive bra. * For engorgement discomfort: Breast Feeding: * Apply warm moist washcloths * Express milk as needed to relieve engorgement * Wear loose clothing * For sore nipples: * Identify correct latch-on * Apply warm moist washcloths before and after nursing * Air dry nipples after nursing * May apply Lansinoh cream to nipples EPISIOTOMY/PERINEAL CARE: * Until bleeding stops, use your deisy bottle after urinating * Change your pad frequently throughout the day * No tub baths until seen by your physician - You may shower ACTIVITY: * Rest as much as possible. * Do not exercise or lift anything heavier than your baby (such as laundry or other children.) * Avoid stairs or driving as much as possible. * Do not put anything into the vagina. No douching, tampons, or sexual activity until seen by physician. NOTIFY PHYSICIAN IF YOU HAVE ANY QUESTIONS OR IF ANY OF THE FOLLOWING SYMPTOMS OCCUR: * If your perineum becomes red, swollen, or more painful than what you have experienced in the hospital. * If your vaginal bleeding becomes foul smelling. * If your vaginal bleeding becomes more heavy than a period or if your bleeding changes from pink to bright red. However, you may pass an occasional walnut-sized clot once or twice for the first week . * If you experience a sharp, shooting pain in you calves. * If you discover a hard, reddened area on your breast or if you experience flu-like symptoms. DIET: * Eat regular, well-balanced meals. * Drink plenty of fluids daily. If , drink to thirst. Stand Alone Forms: General Discharge Information Follow-up/Referrals: Helen Jackman MD [Physician] - Discharge Medications: New docusate sodium 100 mg Capsule 100 mg PO BID PRN (Reason: Constipation) 0RF ibuprofen 600 mg Tablet 600 mg PO Q6H PRN (Reason: Cramping) 0RF Continued prenat.vits,gabriel,[id number] Tablet 1 tablet PO DAILY zolpidem 5 mg Tablet 5 mg PO HS PRN (Reason: Insomnia) 0RF Date of admission: 07/30/22 11:35 Primary Care Provider: PHYSICIAN,SECURITIES SETTLEMENT PROCESSOR Admitting Provider: Helen Jackman Attending physician on admission: Helen Jackman Condition: Stable
== END 2022-07-31 20:33 | disposition home or self-care (01) | DRG 807 ==
LOC: ANHLDR 13:05 → ANHOB2 21:42
PROVIDERS: Advanced Practice Midwife; Admitting Provider Obstetrics & Gynecology; Visit Provider Obstetrics & Gynecology
DX: O32.6XX0 Maternal care for compound presentation, not applicable or unspecified (principal); Z37.0 Single live birth; Z3A.37 37 weeks gestation of pregnancy; O36.8330 Maternal care for abnormalities of the fetal heart rate or rhythm, third trimester, not applicable or unspecified
CPT/HCPCS: 36415; 83036; 85014; 85018; 85025; 86592; 86850; 86880; 86900; 86901; 88307; A9270; J2370; J2590; J2795; J7120

== ENCOUNTER 2023-11-21 10:12 | Outpatient (CLI) | payer BC, SELFPAY ==
[2023-11-21 10:30] LABS: Basophils Absolute Auto 0.1 K/mm3 (0.0-0.1); Basophils Percent Auto 0.8 % (0.2-1.2); Eosinophils Absolute Auto 0.2 K/mm3 (0-0.3); Eosinophils Percent Auto 1.5 % (0-4.4); Hematocrit 42.9 % (37.0-47.0); Hemoglobin 13.9 g/dL (12.0-15.0); Immature Granulocyte Absolute 0.06 K/mm3 (0.00-0.031); Immature Granulocyte Percent A 0.5 % (0-0.5); Lymphocytes Absolute Auto 3.16 K/mm3 (0.9-3.2); Lymphocytes Percent Auto 28.5 % (18.3-44.2); Mean Corpuscular HGB Conc 32.4 g/dl (32-36); Mean Corpuscular Hemoglobin 31.5 pg (26-34); Mean Corpuscular Volume 97.3 fl (80-100); Monocytes Percent Auto 8.6 % (2.6-8.5); Neutrophils Absolute Auto 6.7 K/mm3 (1.3-6.7); Neutrophils Percent Auto 60.1 % (45.5-73.1); Platelet Count Result 392 k/mm3 (150-375); Red Blood Count 4.41 M/mm3 (4.2-5.4); Red Cell Distribution Width 13.5 % (11.5-14.5); White Blood Count 11.1 K/mm3 (4.5-10.0)
[2023-11-21 10:40] LABS: Alanine Aminotransferase 28 U/L (6-35); Albumin Level 4.5 g/dL (3.5-5.1); Alkaline Phosphatase 52 U/L (38-126); Anion Gap 10 mmol/L (8-16); Aspartate Amino Transferase 31 U/L (14-36); Bilirubin,Total 0.6 mg/dL (0.2-1.3); Blood Urea Nitrogen 10 mg/dL (7-17); Calcium 9.4 mg/dL (8.4-10.2); Carbon Dioxide 21 mmol/L (22-30); Chloride 106 mmol/L (98-107); Cholesterol 182 mg/dL (0-200); Estimated Glomerular Filt Rate > 60; Glucose 98 mg/dL (65-110); HDL Direct 68 mg/dL; Potassium 4.1 mmol/L (3.4-5.0); Sodium 137 mmol/L (137-145); Triglycerides 44 mg/dL (<150)
[2023-11-21 10:51] LABS: LDL Cholesterol Direct 95 mg/dL
[2023-11-21 11:07] LABS: Free T4 Free Thyroxine 1.03 ng/mL (0.78-2.19)
== END 2023-11-21 10:13 | disposition home or self-care (01) ==
LOC: ANHLAB 10:15
PROVIDERS: PCP Family Medicine; Visit Provider Family Medicine
DX: M62.81 Muscle weakness (generalized) (principal); E55.9 Vitamin D deficiency, unspecified; E03.9 Hypothyroidism, unspecified; E78.5 Hyperlipidemia, unspecified; D64.9 Anemia, unspecified
CPT/HCPCS: 36415; 80053; 80061; 82306; 84439; 84443; 84480; 85025

== ENCOUNTER 2024-03-25 09:06 | Outpatient (CLI) | payer BC, SELFPAY ==
--- NOTE | ~2024-03-25 | MMUS_ITS ---
EXAMINATION: MM diagnostic rolando BI w darlene, US breast BI complete HISTORY: Palpable left breast abnormality. TECHNIQUE: Additional 3-D tomosynthesis images of the breasts were performed and synthetic 2-D images were generated. CAD analysis was submitted and interpreted. High resolution complete bilateral breas t ultrasound was performed. COMPARISON: No prior studies for comparison. BREAST PARENCHYMAL COMPOSITION: Dense: The breasts are extremely dense, which lowers the sensitivity of mammography. FINDINGS: MAMMOGRAPHIC FINDINGS: There are no suspicious masses, calcifications or architectural distortion in either breast to sugges t malignancy. ULTRASOUND: Complete bilateral US of all 4 quadrants of the breasts and retroareolar region was reviewed. Right breast: Normal heterogeneous echotexture without focal solid or cystic mass. Left breast: At 3:00, 3 cm from the nipple, there is an oval parallel oriented partially cystic hypoe choic 1 cm mass without internal vascularity. There is posterior acoustic enhancement. IMPRESSION: 1. Probable benign left breast mass measuring 1 cm at 3:00, 3 cm from the nipple. 2. Recommend 6 month follow-up Limited left breast ultrasound BI-RADS category 3, probably benign findings. Reviewed, dictated and finalized at location B. IMPRESSION: 1. Probable benign left breast mass measuring 1 cm at 3:00, 3 cm from the nippl e. 2. Recommend 6 month follow-up Limited left breast ultrasound BI-RADS category 3, probably benign findings.
== END 2024-03-25 09:07 ==
PROVIDERS: PCP Nurse Practitioner Adult Health; Visit Provider Advanced Practice Midwife
DX: N63.20 Unspecified lump in the left breast, unspecified quadrant (principal); R92.8 Other abnormal and inconclusive findings on diagnostic imaging of breast
CPT/HCPCS: 76641; 77062; 77066; G0279